=== PATIENT | male | born 1975 | race Caucasian/White ===

== ENCOUNTER 2017-09-29 20:14 | Emergency (ER) | payer SELFPAY ==
[~2017-09-29] VITALS: Ht 180.3 cm; Wt 84.0 kg
[~2017-09-29 20:14] MED LIST: AMOXICILLIN500 MG OR; AMOXIL500 M1 OR; CEPHALEXIN500 MG OR; CIPROFLOXACN500 MG PO; EXCEDRI1 OR; FLEXERIL OR; FLEXERIL PO; HYDROCHLOR12.5 MG/CA PO; INDERAL 40MG TA40 MG PO; LORTAB 5 OR; METRONIDAZOL500 MG PO; MOTRIN800 MG OR; NAPROSYN500 MG PO; NO HOME MEDS; PENICILLN VK500 MG PO; PERCOCET 5/325M1 TAB OR; PRILOSEC20 MG/CAP PO; ULTRAM50 M1 PO; VICOPROFEN OR
[2017-09-29 21:06] VITALS: BP 130/85
== END 2017-09-29 21:18 | disposition home or self-care (01) | DRG 605 ==
LOC: ED 20:14
DX: S61.211A Laceration without foreign body of left index finger without damage to nail, initial encounter (principal); I10 Essential (primary) hypertension; W31.89XA Contact with other specified machinery, initial encounter; Y93.G1 Activity, food preparation and clean up; Y92.009 Unspecified place in unspecified non-institutional (private) residence as the place of occurrence of the external cause

== ENCOUNTER 2019-05-10 19:29 | Emergency (ER) | payer SELFPAY ==
[~2019-05-10] VITALS: Ht 180.3 cm; Wt 86.0 kg
[2019-05-10 21:05] VITALS: BP 142/79
== END 2019-05-10 21:05 | disposition home or self-care (01) | DRG 563 ==
LOC: ED 19:29
DX: S63.501A Unspecified sprain of right wrist, initial encounter (principal); S43.401A Unspecified sprain of right shoulder joint, initial encounter; S60.211A Contusion of right wrist, initial encounter; S40.011A Contusion of right shoulder, initial encounter; I10 Essential (primary) hypertension; F17.290 Nicotine dependence, other tobacco product, uncomplicated; W01.0XXA Fall on same level from slipping, tripping and stumbling without subsequent striking against object, initial encounter; Y92.009 Unspecified place in unspecified non-institutional (private) residence as the place of occurrence of the external cause

== ENCOUNTER 2019-08-09 02:24 | Emergency (ER) | payer SELFPAY ==
[~2019-08-09] VITALS: Ht 180.3 cm; Wt 81.8 kg
[2019-08-09 02:55] VITALS: BP 154/90
== END 2019-08-09 02:56 | disposition home or self-care (01) | DRG 156 ==
LOC: ED 02:24
PROC: 09C3XZZ Extirpation of Matter from Right External Auditory Canal, External Approach (ICD-10-PCS; principal; 2019-08-09)
DX: T16.1XXA Foreign body in right ear, initial encounter (principal); I10 Essential (primary) hypertension; X58.XXXA Exposure to other specified factors, initial encounter

== ENCOUNTER 2020-04-25 03:14 | Emergency (ER) | payer OTHER ==
[~2020-04-25] VITALS: Ht 180.3 cm; Wt 80.5 kg
--- NOTE | 2020-04-25 03:16 | NUR ---
BY WC TO ROOM
[2020-04-25 03:48] LABS: HEMATOCRIT 41.2 % (39.0-50.0); HEMOGLOBIN 14.5 g/dl (14.0-18.0); IMMATURE GRANULOCYTES 0.3 % (0.0-5.0); MEAN CELL VOLUME 87.1 fL CALC (80.0-100.0); MEAN CORPUSCULAR HGB 30.7 pG CALC (26.0-32.0); MEAN CORPUSCULAR HGB CONC 35.2 g/dL CAL (32.0-36.0); NEUT# 6.72 thou/uL (1.82-7.42); RED BLOOD COUNT 4.73 mill/uL (4.70-6.10); RED CELL DISTRI WIDTH 11.6 % (11.5-15.5)
--- NOTE | 2020-04-25 04:00 | NUR ---
RESTING COMFORTABLY AWAITING TEST RESULTS
[2020-04-25 04:06] LABS: ALKALINE PHOSPHATASE 86 u/l (38-126); ANION GAP 12 (6-22 (CALC)); BILIRUBIN, TOTAL 0.5 mg/dL (0.0-1.4); BUN 12 mg/dL (9-20); BUN/CREATININE RATIO 14 (12-20 (CALC)); CARBON DIOXIDE 25 mmol/l (22-30); CHLORIDE 103 mmol/l (95-108); CREATININE 0.9 mg/dL (0.7-1.3); GFR > 60 ML/MIN (>=60 (CALC)); GFR FOR AFR.AMER. > 60 ML/MIN (>=60 (CALC)); POTASSIUM 3.4 mmol/l (3.5-5.1); SGOT/AST 22 u/l (17-59); SODIUM 137 mmol/l (137-146); TOTAL PROTEIN 6.6 g/dL (6.3-8.2)
[2020-04-25 04:17] LABS: MYOGLOBIN 39 ng/mL (0 - 121)
--- NOTE | 2020-04-25 05:00 | NUR ---
RETURNED FROM CT. NAD. AWAITING RESULTS.
--- NOTE | 2020-04-25 06:00 | NUR ---
URINE SPECIMEN OBTAINED AND SENT. NO CHANGE NOTED.
[2020-04-25 06:44] LABS: URINE BILIRUBIN - DIPSTICK NEGATIVE (NEGATIVE); URINE BLOOD DIPSTICK NEGATIVE (NEGATIVE); URINE COLOR YELLOW; URINE GLUCOSE - DIPSTICK NEGATIVE (NEGATIVE); URINE KETONE NEGATIVE (NEGATIVE); URINE LEUK ESTERASE NEGATIVE (NEGATIVE); URINE NITRITE - DIPSTICK NEGATIVE (Negative); URINE PROTEIN - DIPSTICK NEGATIVE (NEG-TRACE); URINE SPECIFIC GRAVITY 1.015; URINE UROBILINOGEN - DIPSTICK 0.2 E.U./dL (0.2)
--- NOTE | 2020-04-25 07:21 | NUR ---
PT NOT WANTING TO BE ADMITTED AT THIS TIME. DISCUSSED POC AND SERIAL TROPONINS AND MONITORING. PT ADAMENT THAT D/T COVID HE DOES NOT WANT TO STAY. CALL PLACED TO DR FITZPATRICK AND ORDER FOR REPEAT TROPONIN, DR INFORMED THAT PT STATES IF TROPONIN NEGATIVE HE WILL LEAVE AMA.
--- NOTE | 2020-04-25 07:45 | NUR ---
REPEAT TROPONIN DRAWN AND BREAKFAST TRAY GIVEN. PT SITTING UP ON SIDE OF BED IN NO DISTRESS. VSS. DAUGHTER AT BEDSIDE
[2020-04-25 08:10] VITALS: BP 120/69
--- NOTE | 2020-04-25 08:10 | NUR ---
NITRO PASTE REMOVED FROM LEFT LOWER ABD. REMOVED IV. PT STATES "MY CHEST PAIN IS GONE, IF IT COMES BACK , I WILL COME BACL TO THE ED". Patient decides to leave AMA. Multiple attempts made to ecourage patient to remain here for continued treatment. Explained to patient all risks of leaving against medical advice including . Pt verbalized understanding of all risks. Pt also encouraged to return to [facility] at any time, especially if symptoms continue or become worse. Pt verbalized understanding. PT LEFT AMBULATORY WITH ADULT DAUGHTER, DECLINES WC. NO DISTRESS
== END 2020-04-25 08:10 | disposition left against medical advice (07) | DRG 313 ==
LOC: ED 03:14 → ED-I 06:17 → ED 06:53 → MS2 06:54 → ED 08:10
PROVIDERS: Emergency Medicine
DX: R07.9 Chest pain, unspecified (principal); R51 Headache; I10 Essential (primary) hypertension; G43.909 Migraine, unspecified, not intractable, without status migrainosus; Z91.19 Patient's noncompliance with other medical treatment and regimen; Z20.828 Contact with and (suspected) exposure to other viral communicable diseases

== ENCOUNTER 2022-10-11 10:32 | Emergency (ER) | payer OTHER ==
[~2022-10-11] VITALS: Ht 180.3 cm; Wt 85.0 kg
[2022-10-11] VITALS (8 sets, daily range): BP systolic 103–120; BP diastolic 54–78
[2022-10-11] MEDS ORDERED: BACTRIM DS1 TAB PO (12:41)
[2022-10-11] MEDS ORDERED: NAPROXEN500 MG PO (12:41)
== END 2022-10-11 13:00 | disposition home or self-care (01) | DRG 603 ==
LOC: ED 10:32
DX: L02.31 Cutaneous abscess of buttock (principal); I10 Essential (primary) hypertension

== ENCOUNTER 2022-10-13 13:25 | Emergency (ER) | payer OTHER ==
[~2022-10-13] VITALS: Ht 180.3 cm; Wt 85.7 kg
[~2022-10-13 13:25] MED LIST changes: +BACTRIM DS1 TAB PO; +NAPROXEN500 MG PO
[2022-10-13 13:41] VITALS: BP 113/70
[2022-10-13 13:45] VITALS: BP 96/58
[2022-10-13] MEDS ORDERED: CEPHALEXIN500 M1 PO (13:56)
[2022-10-13 13:59] VITALS: BP 96/58
== END 2022-10-13 14:07 | disposition home or self-care (01) | DRG 951 ==
LOC: ED 13:25
DX: Z48.01 Encounter for change or removal of surgical wound dressing (principal); I10 Essential (primary) hypertension